=== PATIENT | female | born 1950 | race Caucasian/White ===

== ENCOUNTER 2017-10-15 19:39 | Emergency (ER) | payer MEDICARE, BC ==
[2017-10-15] MEDS ORDERED: LIDOCAINE 2% 10 ML MDV SUBQ STA (21:26)
--- NOTE | 2017-10-15 21:41 | XRAY Report ---
Procedure Date: 10/15/2017 Accession Number: [id number] / [id number] Procedure: XR - Toe(s) LT CPT Code: FULL RESULT: EXAM: LEFT GREAT TOE RADIOGRAPHY EXAM DATE: 10/15/2017 09:18 PM. CLINICAL HISTORY: L great toe injury. COMPARISON: None. TECHNIQUE: 3 views. FINDINGS: Bones: Normal. No fracture or bone lesion. Joints: Normal. No subluxations. Soft Tissues: Normal. No soft tissue swelling. IMPRESSION: Normal toe radiography. [facility]
[2017-10-15] MEDS ORDERED: BACITRACIN OINT TOP STA (22:27)
--- NOTE | 2017-10-15 22:31 | ED Physician Documentation ---
PD HPI LOWER EXT INJURY - Stated complaint Stated Complaint: L TOE LAC - Chief complaint Chief Complaint: Laceration - History obtained from History obtained from: Patient, Family - History of Present Illness PD HPI LOW EXT INJURY LOCATION: Left, Toe (great) Type of injury: Laceration Where injury occurred: Home Timing - onset: How many hours ago (1) Timing - duration: Hours (1) Timing - details: Abrupt onset Pain level max: 6 Pain level now: 4 Improved by: Rest Worsened by: Palpating, Other (walking) Associated symptoms: No: Weakness, Numbness, Tingling Contributing factors: No: Anticoagulated - Additional information Additional information: dropped a bottle of wine on her foot. Review of Systems Neurologic: denies: Focal weakness, Numbness PD PAST MEDICAL HISTORY - Past Medical History Past Medical History: Yes Other Past Medical History: allergies - Past Surgical History Past Surgical History: No - Present Medications Home Medications: Ambulatory Orders Medication Instructions Recorded Confirmed Cetirizine [ZyrTEC] 10/15/17 Fluticasone [Flonase] 10/15/17 Loteprednol Etabonate [Lotemax] 5 ml OP 10/15/17 Progesterone,Micronized 10/15/17 10/15/17 [Progesterone] - Allergies Allergies/Adverse Reactions: Allergies Allergy/AdvReac Type Severity Reaction Status Date / Time No Known Drug Allergies Allergy Verified 10/15/17 20:03 - Living Situation Living Situation: reports: With family Living Arrangement: reports: At home - Social History Does the pt smoke?: No Does the pt drink ETOH?: Yes PD ED PE NORMAL - Vitals Vital signs reviewed: Yes - General General: Alert and oriented X 3, No acute distress - Derm Derm: Warm and dry - Extremities Extremities: Other (L great toe - Diffusely tender palpation. There is a curved 3 cm laceration over the dorsal aspect of the toe. Neurovascularly intact. No tendon injury. No foreign body. No nail injury. No subungual hematoma) - Neuro Neuro: Alert and oriented X 3 Results - Vitals Vitals: Oxygen O2 Source Room air - Rads (name of study) Left great toe xray Radiology: Prelim report reviewed, EMP read contemporaneously, See rad report ( Normal) Procedures - Laceration (location) Left great toe Length in cm: 3 Wound type: Curved, Into subcut fat Neurovascular status: Sensory intact, Motor intact, Vascular intact Tendon involvement: Tendon intact. No: Tendon Injury Anesthesia: Lidocaine 2% Wound Preparation: Irrigated copiously NS, Wound explored, To the base Skin layer closure: Nylon, Size #-0 - enter number (4), Sutures - enter # (6) Other: Patient tolerated well, No complications, Neurovascular intact, Tetanus UTD Complexity: Simple PD MEDICAL DECISION MAKING - ED course Complexity details: reviewed results, re-evaluated patient, considered differential, d/w patient, d/w family ED course: Patient with a left great toe injury. No fracture on x-ray. Tendon is intact. No foreign body. Laceration repaired. Warnings of infection and instructions on wound care given at bedside. Also counseled on how to minimize scarring. Patient counseled regarding signs and symptoms for which I believe and urgent re-evaluation would be necessary. Patient with good understanding of and agreement to plan and is comfortable going home at this time This document was made in part using voice recognition software. While efforts are made to proofread this document, sound alike and grammatical errors may occur. - Sepsis Event Vital Signs: Oxygen O2 Source Room air Departure - Departure Disposition: 01 Home, Self Care Clinical Impression: Toe laceration Qualifiers: Encounter type: initial encounter Toe: great toe Damage to nail status: without damage Foreign body presence: without foreign body Laterality: left Qualified Code(s): S91.112A - Laceration without foreign body of left great toe without damage to nail, initial encounter Condition: Good Instructions: ED Laceration Foot Follow-Up: ROXI SANTANA MD [Primary Care Provider] - (in 10-14 days for suture removal) Comments: Follow up with your doctor in 10-14 days for suture removal. Return if you notice redness, swelling or drainage from the wound. Wear the post op shoe for comfort. Discharge Date/Time: 10/15/17 22:53
[2017-10-15 22:46] VITALS: BP 137/81
== END 2017-10-15 22:53 | disposition home or self-care (01) ==
LOC: ED 19:39
DX: S91.112A Laceration without foreign body of left great toe without damage to nail, initial encounter (principal); W25.XXXA Contact with sharp glass, initial encounter; Y92.009 Unspecified place in unspecified non-institutional (private) residence as the place of occurrence of the external cause
CPT/HCPCS: 12002; 73660; 99282; 99283; A9270